=== PATIENT | female | born 1940 | race Caucasian/White ===

== ENCOUNTER 2025-02-04 13:33 | Emergency (ER) | payer OTHER, SELFPAY ==
[2025-02-04 13:35] VITALS: BP 181/86
--- NOTE | 2025-02-04 15:25 | ED.GENMED ---
History of Present Illness
General
Chief Complaint: Back Pain
Source: patient and family
Exam Limitations: none
Time Seen by Provider: 02/04/25 14:20
Nursing documentation reviewed up to this point in time: agreed with
History of Present Illness
History of Present Illness:
Patient is a 84-year-old female who presents to the ER complaining of right-sided sciatica for the past 2 weeks. She does have a history of this 30 years ago but then started with this 2 weeks ago. She saw her family doctor took a Medrol Dosepak
helped a little bit however pain is gone progressively worse. She is scheduled for an MRI this week she denies any bowel or bladder incontinence denies any saddle paresthesia. Denies any lower extremity weakness. Denies any recent injury or
trauma. Family reports she was in a lot of discomfort today and was nauseous from the discomfort. She currently denies any nausea. She has been getting around does have a walker at home.
Review of Systems
Review of Systems
Allergies reviewed?: Yes
All Other Systems: ROS reviewed and negative except as documented in HPI and ROS
Constitutional: Reports no symptoms
Cardiac: Reports no symptoms
ABD/GI: Reports no symptoms
: Denies incontinence
Musculoskeletal: Reports other (Pain to the right buttocks radiating to right leg)
Skin: Reports no symptoms
Neurological: Reports no symptoms; Denies weakness
Phy Exam
General Physical Exam
General Presentation: no apparent distress
General age: appears stated age
General Skin: warm and dry
General Habitus: elderly
General Mental: alert
General Hydration: appears well hydrated
Neurological Exam
Neurological Exam: alert, oriented x3, no motor deficits, no sensory deficits and other (Normal patellar reflexes bilaterally normal dorsiflexion plantarflexion normal distal sensation)
Musculoskeletal Exam
Musculoskeletal Exam: full ROM
Skin Exam
Skin Exam: normal color
Psychiatric Exam
Psychiatric Exam: normal mood/affect
Course
Orders/Labs/Results
Orders:
Orders
02/04/25 15:38
Acetaminophen [Tylenol] 1,000 mg PO NOW STA
Dexamethasone Pf [Decadron] 10 mg PO NOW STA
Lidocaine [Lidocaine 4% Patch] 1 patch TOPICAL NOW STA
Apply Lidocaine patch(s) to:: right buttock
Vital Signs
Initial and Last Documented VS:
Initial Vital Signs
Temp Pulse Resp BP Pulse Ox
98.9 F 62 16 181/86 98
02/04/25 13:35 02/04/25 13:35 02/04/25 13:35 02/04/25 13:35 02/04/25 13:35
Last Documented Vital Signs
Temp Pulse Resp BP Pulse Ox
98.9 F 62 16 181/86 98
02/04/25 13:35 02/04/25 13:35 02/04/25 13:35 02/04/25 13:35 02/04/25 13:35
MDM/Problems Addressed
Differential Diagnosis Includes:
Not limited to sciatica
MDM/Problems Addressed:
Symptoms are consistent with sciatica. Will DC on steroids to a higher dose of oral taper.
She has been closely followed by her family doctor for this and Ortho and scheduled for an MRI this week. On exam there is no acute neurological deficits or concerns. She denies any weakness or saddle paresthesia. She is in no acute distress.
She is able to bear weight we will give first dose of Decadron here along with Tylenol and patch. I did review with family /patient that steroids may increase blood sugar however with patient's pain benefits outweigh the risks. Discussed close the
patient follow-up family doctor for this
Chronic conditions affecting care:
Hypertension/ diabetes
*Critical Care Note
Total Time (30-74mins, 75-104mins- exclusive of procedures): Not Applicable
ED Attending Note
-
Portions of this chart may have been created with voice recognition software.� Occasional wrong word or��sound alike� substitutions may have occurred due to the inherent limitations of voice recognition software.
Discharge Plan
Departure
Patient Disposition: Home (Routine Discharge)
Date of Disposition: 02/04/25
Time of Disposition: 15:40
Patient with high blood pressure during this ER visit?: Yes
Condition: Fair
Covid-19: Not Applicable
Discharge Problem:
Sciatica
Instructions: Sciatica (DC), BLOOD PRESSURE
Prescriptions:
New
prednisone 10 mg Tablet
See Rx Instructions .ROUTE .COMPLEX Qty: 30 0RF
Rx Instructions:
Take By Mouth:
40 mg daily x3 days, 30 mg daily x3 days,
20 mg daily x3 days, 10 mg daily x3 days.
lidocaine 5 % adhesive patch,medicated
1 patch topical DAILY Qty: 15 0RF
Referrals:
Italo Santana DO [Family Provider] -
Rich Calles DO [Non-Admitting Privileges] -
Activity Restrictions/Additional Instructions:
As discussed you were given a dose of oral steroids(Decadron) here in the ER today along with a lidocaine patch and Tylenol. A prescription for steroids was sent to your pharmacy to take as a taper. Start tomorrow.
Follow-up with your MRI as scheduled. Follow-up with your [facility]. Please call Thursday to schedule appointment. but return if any worsening of symptoms if increased pain if bowel or bladder incontinence weakness or any further
concerns.
Discharge Date and Time
Print Language: INDONESIAN
[2025-02-04] MEDS: DECADRON 10 MG PO (15:51)
[2025-02-04] MEDS: LIDOCAINE 4% PATCH 1 PATCH TOPICAL (15:52)
[2025-02-04] MEDS: TYLENOL 1000 MG PO (15:52)
== END 2025-02-04 17:28 | disposition home or self-care (01) ==
LOC: EMR 13:33
PROVIDERS: EMERGENCY PHYSICIAN Emergency Medicine; FAMILY PHYSICIAN Internal Medicine
DX: M54.31 Sciatica, right side (principal); E11.9 Type 2 diabetes mellitus without complications; I10 Essential (primary) hypertension
CPT/HCPCS: 99282